=== PATIENT | female | born 1985 | race African-American/Black ===

== ENCOUNTER 2021-12-05 09:03 | Emergency (ER) | payer OTHER ==
[~2021-12-05] VITALS: Ht 165.1 cm; Wt 93.0 kg
[2021-12-05 09:04] VITALS: BP 96/66
[2021-12-05] MEDS ORDERED: OCUFLOX5 ML OPHTHALMIC (10:20)
== END 2021-12-05 10:25 | disposition home or self-care (01) ==
LOC: ER 09:03
DX: H10.9 Unspecified conjunctivitis (principal)